=== PATIENT | male | born 1960 | race Two or more races ===

== ENCOUNTER 2017-02-18 12:36 | Inpatient (IN) | payer BC ==
[~2017-02-18] VITALS: Ht 188 cm; Wt 79.0 kg
[~2017-02-18 12:36] MED LIST: PERCOCET 5/31 TABLET PO
[2017-02-18 12:40] VITALS: BP 110/63
[2017-02-18 13:41] LABS: POINT-OF-CARE METER ID UU13113720
[2017-02-18] MEDS ORDERED: DECADRON4 MG PO (14:35)
[2017-02-18] MEDS ORDERED: FAMOTIDINE20 MG PO (14:36)
[2017-02-18] MEDS ORDERED: HYDROCODON-ACE1 EAC7 PO (14:38)
[2017-02-18 14:39] VITALS: BP 111/57
[2017-02-18] MEDS ORDERED: NOVOLOG 10100 UNITS/ SC (14:42)
[2017-02-18] MEDS ORDERED: LANTUS 10100 UNITS/ SC (14:48)
[2017-02-18] MEDS ORDERED: NYSTATIN100000 UN1 PO (14:52)
[2017-02-18] MEDS ORDERED: LEVITRA20 MG PO (14:59)
[2017-02-18] MEDS ORDERED: KEPPRA750 MG PO (15:02)
[2017-02-18] MEDS ORDERED: ACIDOPHILUS100 M1 PO (15:04)
[2017-02-18 16:42] LABS: POINT-OF-CARE METER ID UU13113720
[2017-02-18 21:16] LABS: POINT-OF-CARE METER ID UU14174215
[2017-02-18 23:58] VITALS: BP 106/56
[2017-02-19 05:49] LABS: HEMATOCRIT 30.4 % (38.0-50.0); MCH 23.3 PG (29.0-34.0); MCHC 32.9 G/DL (30.0-36.0); MCV 70.7 FL (86-99); MEAN PLAT.VOLUME 11.1 uM^3 (9.0-12.4); NRBC (%) 0.2 /100 WBC (0-0); PLATELET COUNT 102 K/uL (156-360); RBC DIS.WIDTH-CV 14.8 % (11.8-14.6); RBC DIS.WIDTH-SD 35.3 % (39-53); WHITE BLOOD COUNT 13.5 K/uL (4.1-10.2)
[2017-02-19 05:51] VITALS: BP 106/58
[2017-02-19 07:42] LABS: POINT-OF-CARE METER ID UU13113720
[2017-02-19 09:46] LABS: CHLORIDE 102 mEq/L (99-109); POTASSIUM 4.6 mEq/L (3.7-5.4)
[2017-02-19 09:47] LABS: SODIUM 133 mEq/L (136-147)
[2017-02-19 09:49] LABS: GLUCOSE 177 mg/dL (70-99)
[2017-02-19 09:50] LABS: ANION GAP 10 MEQ/L (2-14)
[2017-02-19 09:51] LABS: TOTAL BILIRUBIN 0.7 mg/dL (0.0-1.0)
[2017-02-19 09:52] LABS: ALKALINE PHOSPHATASE 47 IU/L (3-129); GFR ESTIMATE (CALCULATED) > 59 mL/min/
[2017-02-19 09:54] LABS: UREA NITROGEN (BUN) 26 mg/dL (9-23)
[2017-02-19 11:58] LABS: POINT-OF-CARE METER ID UU13113720
[2017-02-19 15:15] VITALS: BP 118/57
[2017-02-19 16:50] LABS: POINT-OF-CARE METER ID UU14174215
[2017-02-19 21:23] LABS: POINT-OF-CARE METER ID UU14174215
[2017-02-20 05:14] VITALS: BP 106/59
[2017-02-20 06:59] VITALS: BP 106/59
[2017-02-20 07:44] LABS: POINT-OF-CARE METER ID UU13113720
[2017-02-20 11:58] LABS: POINT-OF-CARE METER ID UU13113720
[2017-02-20 15:28] VITALS: BP 123/67
[2017-02-20 16:32] LABS: POINT-OF-CARE METER ID UU13113720
[2017-02-20 21:00] LABS: POINT-OF-CARE METER ID UU14174215
[2017-02-21 05:18] VITALS: BP 108/56
[2017-02-21 07:31] LABS: POINT-OF-CARE METER ID UU14174215; POINT-OF-CARE USER ID ENVGAF
[2017-02-21 11:40] LABS: POINT-OF-CARE METER ID UU13113720; POINT-OF-CARE USER ID ENVGAF
[2017-02-21 16:02] VITALS: BP 117/58
[2017-02-21 16:15] LABS: POINT-OF-CARE METER ID UU13113720
[2017-02-21 21:07] LABS: POINT-OF-CARE METER ID UU13113720
[2017-02-22 05:29] VITALS: BP 113/62
[2017-02-22 06:14] LABS: ALKALINE PHOSPHATASE 53 IU/L (3-129); ANION GAP 4 MEQ/L (2-14); CHLORIDE 102 MEQ/L (99-109); GFR ESTIMATE (CALCULATED) > 59 mL/min/; GLUCOSE 183 mg/dL (70-99); POTASSIUM 4.2 MEQ/L (3.7-5.4); SAMPLE HEMOLYSIS CHECK 0; SAMPLE ICTERIC CHECK 0; SAMPLE LIPEMIA CHECK 0; SODIUM 135 MEQ/L (136-147); TOTAL BILIRUBIN 0.7 MG/DL (0.0-1.0); UREA NITROGEN (BUN) 19 mg/dL (9-23)
[2017-02-22 06:22] LABS: HEMATOCRIT 30.8 % (38.0-50.0); MCH 23.1 PG (29.0-34.0); MCHC 32.1 G/DL (30.0-36.0); MCV 71.8 FL (86-99); MEAN PLAT.VOLUME 11.6 uM^3 (9.0-12.4); PLATELET COUNT 101 K/uL (156-360); RBC DIS.WIDTH-CV 15.4 % (11.8-14.6); RBC DIS.WIDTH-SD 37.1 % (39-53); RED BLOOD COUNT 4.29 M/uL (4.00-5.50)
[2017-02-22 06:27] LABS: WHITE BLOOD COUNT 18.3 K/uL (4.1-10.2)
[2017-02-22 07:09] LABS: POINT-OF-CARE METER ID UU14174215
[2017-02-22 11:47] LABS: POINT-OF-CARE METER ID UU14174215
[2017-02-22 14:21] VITALS: BP 154/74
[2017-02-22 14:29] VITALS: BP 136/70
[2017-02-22 14:35] LABS: POINT-OF-CARE METER ID UU14174215
[2017-02-22 14:55] VITALS: BP 131/72
[2017-02-22 15:10] LABS: ALKALINE PHOSPHATASE 61 IU/L (3-129); ANION GAP 16 MEQ/L (2-14); CHLORIDE 98 MEQ/L (99-109); GFR ESTIMATE (CALCULATED) > 59 mL/min/; GLUCOSE 244 mg/dL (70-99); POTASSIUM 4.5 MEQ/L (3.7-5.4); SAMPLE HEMOLYSIS CHECK 0; SAMPLE ICTERIC CHECK 0; SAMPLE LIPEMIA CHECK 0; SODIUM 134 MEQ/L (136-147); TOTAL BILIRUBIN 0.8 MG/DL (0.0-1.0); UREA NITROGEN (BUN) 18 mg/dL (9-23)
[2017-02-22 15:30] VITALS: BP 140/77
[2017-02-22 16:03] LABS: ADD MIUA? YES; BILIRUBIN NEGATIVE; BLOOD SMALL; COLOR YELLOW ((YELLOW)); GLUCOSE (STRIP) >=500; KETONES NEGATIVE; LEUKOCYTES NEGATIVE; NITRITE NEGATIVE; PROTEIN (STRIP) NEGATIVE; SPECIFIC GRAVITY 1.024 (1.000-1.030); UROBILINOGEN 0.2 MG/DL (0.2-1.0)
[2017-02-22 16:08] LABS: EOSINOPHIL (%) 0.2 % (0-5); EOSINOPHIL COUNT 0.1 K/uL (0-0.3); HEMATOCRIT 36.6 % (38.0-50.0); IMMATURE GRANULOCYTE (%) 4.3 % (0.0-0.7); IMMATURE GRANULOCYTE COUNT 1.1 K/uL; LYMPHOCYTE COUNT 2.9 K/uL (1.0-2.8); MCH 23.6 PG (29.0-34.0); MCHC 31.7 G/DL (30.0-36.0); MCV 74.4 FL (86-99); MONOCYTE (%) 6.4 % (3-12); MONOCYTE COUNT 1.7 K/uL (0-0.8); NEUTROPHIL (%) 78.1 % (45-76); PLATELET COUNT 129 K/uL (156-360); RBC DIS.WIDTH-CV 15.9 % (11.8-14.6); RBC DIS.WIDTH-SD 39.8 % (39-53); RED BLOOD COUNT 4.92 M/uL (4.00-5.50)
[2017-02-22 16:18] LABS: WHITE BLOOD COUNT 26.8 K/uL (4.1-10.2)
[2017-02-22 16:19] LABS: BACTERIA RARE /HPF; BUDDING YEAST 2+; EPITHELIAL CELLS NONE SEEN /HPF; MUCUS TRACE /LPF; RED BLOOD CELLS 0-5 /HPF (0-5); UCUL ADDED? NO; WHITE BLOOD CELLS 0-5 /HPF (0-5)
[2017-02-22 17:08] VITALS: BP 134/64
[2017-02-22 17:08] LABS: BASE EXCESS 1.6 mEq/L (-3 to +3); BICARBONATE 25.8 mEq/L (22-26); CARBOXY HGB 2.2 % (0-5); METHEMOGLOBIN 1.9 % (0-1.5); PCO2 38 mm Hg (35-45); PO2 72 mm Hg (80-100); SITE RR; pH 7.44 (7.35-7.45)
[2017-02-22 17:09] LABS: COMMENTS - BLOOD GASES A+C+; FI02 21 %; TOTAL RESP RATE 18 resp/min
== END 2017-02-22 17:20 | DRG 949 ==
LOC: 3WEST 12:36 → 5SOUTH 02-22 17:01 → 3WEST 02-22 17:01
PROVIDERS: Hospitalist; Physical Medicine & Rehabilitation Pain Medicine
PROC: F07M0ZZ Range of Motion and Joint Mobility Treatment of Musculoskeletal System - Whole Body (ICD-10-PCS; principal; 2017-02-18)
DX: Z48.3 Aftercare following surgery for neoplasm (principal); R53.1 Weakness; J18.9 Pneumonia, unspecified organism; D62 Acute posthemorrhagic anemia; E87.1 Hypo-osmolality and hyponatremia; B37.0 Candidal stomatitis; G81.91 Hemiplegia, unspecified affecting right dominant side; D32.0 Benign neoplasm of cerebral meninges; I10 Essential (primary) hypertension; R40.4 Transient alteration of awareness; E11.649 Type 2 diabetes mellitus with hypoglycemia without coma; N40.0 Benign prostatic hyperplasia without lower urinary tract symptoms; G40.909 Epilepsy, unspecified, not intractable, without status epilepticus; G89.18 Other acute postprocedural pain; M21.372 Foot drop, left foot; R33.9 Retention of urine, unspecified; E83.51 Hypocalcemia; R41.841 Cognitive communication deficit; R26.2 Difficulty in walking, not elsewhere classified; M43.6 Torticollis; Z79.4 Long term (current) use of insulin; R32 Unspecified urinary incontinence
CPT/HCPCS: 36600; 70450; 71020; 80053; 81003; 82803; 82948; 83605; 85025; 85027; 87040; 92523 GN; 93005; 97110 GO; 97530 GP; 97532 GN; J1815; J1953; J2060; J7030; J7050; J8540

== ENCOUNTER 2017-02-22 17:21 | Inpatient (IN) | payer BC ==
[~2017-02-22] VITALS: Ht 188 cm; Wt 79.0 kg
[~2017-02-22 17:21] MED LIST changes: +ACIDOPHILUS100 M1 PO; +DECADRON4 MG PO; +FAMOTIDINE20 MG PO; +HYDROCODON-ACE1 EAC7 PO; +KEPPRA750 MG PO; +LANTUS 10100 UNITS/ SC; +LEVITRA20 MG PO; +NOVOLOG 10100 UNITS/ SC; +NYSTATIN100000 UN1 PO
[2017-02-22 17:49] VITALS: BP 134/64
[2017-02-22 19:47] VITALS: BP 142/66
[2017-02-22 21:33] LABS: POINT-OF-CARE METER ID UU14174225
[2017-02-22 23:57] LABS: POINT-OF-CARE METER ID UU14174225
[2017-02-22 23:58] VITALS: BP 123/60
[2017-02-23 03:20] VITALS: BP 112/59
[2017-02-23 06:54] LABS: EOSINOPHIL (%) 0 % (0-5); HEMATOCRIT 31.8 % (38.0-50.0); IMMATURE GRANULOCYTE (%) 2.3 % (0.0-0.7); IMMATURE GRANULOCYTE COUNT 0.4 K/uL; INSTRUMENT ABS NEUTROPHIL CT 15.5 K/uL; LYMPHOCYTE COUNT 0.6 K/uL (1.0-2.8); MCH 23.1 PG (29.0-34.0); MCHC 31.8 G/DL (30.0-36.0); MCV 72.6 FL (86-99); MEAN PLAT.VOLUME 11.6 uM^3 (9.0-12.4); MONOCYTE (%) 5.9 % (3-12); NEUTROPHIL (%) 88.5 % (45-76); NEUTROPHIL COUNT 15.5 K/uL (1.8-6.4); PLATELET COUNT 104 K/uL (156-360); RBC DIS.WIDTH-CV 15.9 % (11.8-14.6); RBC DIS.WIDTH-SD 39.6 % (39-53); RED BLOOD COUNT 4.38 M/uL (4.00-5.50); WHITE BLOOD COUNT 17.5 K/uL (4.1-10.2)
[2017-02-23 07:05] LABS: ANION GAP 6 MEQ/L (2-14); CHLORIDE 104 MEQ/L (99-109); GFR ESTIMATE (CALCULATED) > 59 mL/min/; GLUCOSE 206 mg/dL (70-99); POTASSIUM 4.4 MEQ/L (3.7-5.4); SAMPLE HEMOLYSIS CHECK 0; SAMPLE ICTERIC CHECK 0; SAMPLE LIPEMIA CHECK 0; SODIUM 137 MEQ/L (136-147); UREA NITROGEN (BUN) 19 mg/dL (9-23)
[2017-02-23 08:18] VITALS: BP 123/58
[2017-02-23 11:02] VITALS: BP 117/60
[2017-02-23 15:59] VITALS: BP 119/60
[2017-02-23 20:20] VITALS: BP 119/67
[2017-02-23 23:59] VITALS: BP 127/81
[2017-02-24 04:00] VITALS: BP 107/59
[2017-02-24 08:33] VITALS: BP 108/55
[2017-02-24 12:09] VITALS: BP 116/64
[2017-02-24 16:25] VITALS: BP 118/66
[2017-02-24 17:49] LABS: POINT-OF-CARE METER ID UU14174225
[2017-02-24 20:00] VITALS: BP 99/58
[2017-02-25] VITALS: BP 108/56
[2017-02-25 06:12] LABS: POINT-OF-CARE METER ID UU14174225
[2017-02-25 08:11] VITALS: BP 103/59
[2017-02-25 11:51] VITALS: BP 105/57
[2017-02-25] MEDS ORDERED: DILANTIN100 MG PO (12:51)
[2017-02-25] MEDS ORDERED: LEVETIRACETAM500 MG PO (12:51)
[2017-02-25] MEDS ORDERED: PERCOCET 5/31 TABLET PO (12:53)
== END 2017-02-25 14:55 | DRG 101 ==
LOC: 3WEST 17:21 → 5SOUTH 17:42
PROVIDERS: Hospitalist; Internal Medicine
DX: G40.89 Other seizures (principal); R41.82 Altered mental status, unspecified; D32.0 Benign neoplasm of cerebral meninges; Z98.890 Other specified postprocedural states; I10 Essential (primary) hypertension; E11.9 Type 2 diabetes mellitus without complications; I69.352 Hemiplegia and hemiparesis following cerebral infarction affecting left dominant side; N40.0 Benign prostatic hyperplasia without lower urinary tract symptoms; R26.2 Difficulty in walking, not elsewhere classified; Z79.4 Long term (current) use of insulin
CPT/HCPCS: 80048; 82948; 83605; 85025; 85027; 92610 GN; 95819; C9113; J1100; J1165; J1815; J1885; J1953; J2060; J7030; J7050

== ENCOUNTER 2017-02-25 12:11 | Inpatient (IN) | payer BC ==
[~2017-02-25] VITALS: Ht 188 cm; Wt 92.2 kg
[2017-02-25] MEDS ORDERED: LEVETIRACETAM500 MG PO (12:51)
[2017-02-25] MEDS ORDERED: DILANTIN100 MG PO (12:51)
[2017-02-25] MEDS ORDERED: PERCOCET 5/31 TABLET PO (12:53)
[2017-02-25 15:25] VITALS: BP 111/59
[2017-02-25 16:20] LABS: POINT-OF-CARE METER ID UU13113720
[2017-02-25 21:35] LABS: POINT-OF-CARE METER ID UU13113720
[2017-02-25 23:27] VITALS: BP 98/55
[2017-02-26 06:21] VITALS: BP 101/58
[2017-02-26 06:22] LABS: ALKALINE PHOSPHATASE 53 IU/L (3-129); ANION GAP 6 MEQ/L (2-14); CHLORIDE 107 MEQ/L (99-109); GFR ESTIMATE (CALCULATED) > 59 mL/min/; GLUCOSE 216 mg/dL (70-99); POTASSIUM 4.1 MEQ/L (3.7-5.4); SAMPLE HEMOLYSIS CHECK 0; SAMPLE ICTERIC CHECK 0; SAMPLE LIPEMIA CHECK 0; SODIUM 138 MEQ/L (136-147); UREA NITROGEN (BUN) 23 mg/dL (9-23)
[2017-02-26 06:24] LABS: TOTAL BILIRUBIN 0.4 MG/DL (0.0-1.0)
[2017-02-26 06:29] LABS: HEMATOCRIT 30.5 % (38.0-50.0); MCH 23.2 PG (29.0-34.0); MCHC 32.1 G/DL (30.0-36.0); MCV 72.1 FL (86-99); MEAN PLAT.VOLUME 11.1 uM^3 (9.0-12.4); PLATELET COUNT 94 K/uL (156-360); RBC DIS.WIDTH-CV 15.9 % (11.8-14.6); RBC DIS.WIDTH-SD 40.2 % (39-53); RED BLOOD COUNT 4.23 M/uL (4.00-5.50)
[2017-02-26 06:31] LABS: WHITE BLOOD COUNT 11.7 K/uL (4.1-10.2)
[2017-02-26 06:38] LABS: POINT-OF-CARE METER ID UU14174215; POINT-OF-CARE USER ID ENVGAF
[2017-02-26 11:35] LABS: POINT-OF-CARE METER ID UU14174215
[2017-02-26 15:13] VITALS: BP 108/56
[2017-02-26 16:13] LABS: POINT-OF-CARE METER ID UU13113720
[2017-02-26 21:31] LABS: POINT-OF-CARE METER ID UU14174215
[2017-02-27 05:21] VITALS: BP 103/59
[2017-02-27 08:08] LABS: POINT-OF-CARE METER ID UU14174215; POINT-OF-CARE USER ID AHSSSJB31
[2017-02-27 11:38] LABS: POINT-OF-CARE METER ID UU13113720
[2017-02-27 15:05] VITALS: BP 114/57
[2017-02-27 16:28] LABS: POINT-OF-CARE METER ID UU13113720
[2017-02-27 20:54] LABS: POINT-OF-CARE METER ID UU14174215; POINT-OF-CARE USER ID 610211320
[2017-02-28 05:10] VITALS: BP 113/57
[2017-02-28 07:24] LABS: POINT-OF-CARE METER ID UU14174215; POINT-OF-CARE USER ID AHSSSJB31
[2017-02-28 12:16] LABS: POINT-OF-CARE METER ID UU13113720; POINT-OF-CARE USER ID AHSSSJB31
[2017-02-28 15:50] VITALS: BP 109/50
[2017-02-28 16:45] LABS: POINT-OF-CARE METER ID UU13113720
[2017-02-28 21:15] LABS: POINT-OF-CARE METER ID UU13113720
[2017-03-01 05:53] VITALS: BP 114/55
[2017-03-01 06:56] LABS: POINT-OF-CARE METER ID UU14174215; POINT-OF-CARE USER ID ENVGAF
[2017-03-01 11:05] LABS: POINT-OF-CARE METER ID UU13113720
[2017-03-01 15:11] VITALS: BP 112/57
[2017-03-01 16:37] LABS: POINT-OF-CARE METER ID UU13113720
[2017-03-01 21:12] LABS: POINT-OF-CARE METER ID UU13113720
[2017-03-02 06:51] VITALS: BP 109/57
[2017-03-02 07:11] LABS: POINT-OF-CARE METER ID UU13113720
[2017-03-02 11:14] LABS: ADD MIUA? YES; BILIRUBIN NEGATIVE; BLOOD MODERATE; COLOR YELLOW ((YELLOW)); GLUCOSE (STRIP) >=500; KETONES NEGATIVE; LEUKOCYTES LARGE; NITRITE POSITIVE; PROTEIN (STRIP) 30; SPECIFIC GRAVITY 1.025 (1.000-1.030); UROBILINOGEN 0.2 MG/DL (0.2-1.0)
[2017-03-02 11:24] LABS: POINT-OF-CARE METER ID UU13113720
[2017-03-02 11:31] LABS: BACTERIA 3+ /HPF; BUDDING YEAST 4+; EPITHELIAL CELLS NONE SEEN /HPF; MUCUS TRACE /LPF; RED BLOOD CELLS 30-40 /HPF (0-5); WHITE BLOOD CELLS TNTC /HPF (0-5); WHITE BLOOD CELLS CLUMP MANY /HPF (0-5)
[2017-03-02 15:05] VITALS: BP 106/54
[2017-03-02 16:26] LABS: POINT-OF-CARE METER ID UU13113720
[2017-03-02 21:14] LABS: POINT-OF-CARE METER ID UU13113720; POINT-OF-CARE USER ID 610211320
[2017-03-03 05:43] VITALS: BP 111/55
[2017-03-03 07:28] LABS: POINT-OF-CARE METER ID UU13113720
[2017-03-03 11:31] LABS: POINT-OF-CARE METER ID UU14174215; POINT-OF-CARE USER ID ENVGAF
[2017-03-03 15:02] VITALS: BP 101/58
[2017-03-03 16:50] LABS: POINT-OF-CARE METER ID UU13113720
[2017-03-03 21:34] LABS: POINT-OF-CARE METER ID UU13113720
[2017-03-04 05:21] LABS: CHLORIDE 107 mEq/L (99-109); POTASSIUM 4.2 mEq/L (3.7-5.4); SODIUM 140 mEq/L (136-147)
[2017-03-04 05:23] LABS: GLUCOSE 120 mg/dL (70-99)
[2017-03-04 05:24] LABS: ANION GAP 6 MEQ/L (2-14)
[2017-03-04 05:25] LABS: TOTAL BILIRUBIN 0.3 mg/dL (0.0-1.0)
[2017-03-04 05:27] LABS: ALKALINE PHOSPHATASE 102 IU/L (3-129); GFR ESTIMATE (CALCULATED) > 59 mL/min/
[2017-03-04 05:28] LABS: UREA NITROGEN (BUN) 12 mg/dL (9-23)
[2017-03-04 05:42] VITALS: BP 101/55
[2017-03-04 06:28] LABS: HEMATOCRIT 31.6 % (38.0-50.0); MCH 23.1 PG (29.0-34.0); MCHC 31.3 G/DL (30.0-36.0); MCV 73.8 FL (86-99); MEAN PLAT.VOLUME 12.9 uM^3 (9.0-12.4); PLATELET COUNT 80 K/uL (156-360); RBC DIS.WIDTH-CV 16.2 % (11.8-14.6); RBC DIS.WIDTH-SD 42.5 % (39-53); RED BLOOD COUNT 4.28 M/uL (4.00-5.50)
[2017-03-04 06:32] LABS: WHITE BLOOD COUNT 6.6 K/uL (4.1-10.2)
[2017-03-04 08:17] LABS: POINT-OF-CARE METER ID UU13113720; POINT-OF-CARE USER ID AHSSSJB31
[2017-03-04 12:21] LABS: POINT-OF-CARE METER ID UU14174215; POINT-OF-CARE USER ID AHSSSJB31
[2017-03-04 15:56] VITALS: BP 110/69
[2017-03-04 16:34] LABS: POINT-OF-CARE METER ID UU13113720; POINT-OF-CARE USER ID AHSSSJB31
[2017-03-04 21:32] LABS: POINT-OF-CARE METER ID UU14174215
[2017-03-05 05:30] VITALS: BP 112/59
[2017-03-05 07:34] LABS: POINT-OF-CARE METER ID UU14174215
[2017-03-05 11:44] LABS: POINT-OF-CARE METER ID UU13113720
[2017-03-05 15:03] VITALS: BP 113/57
[2017-03-05 16:45] LABS: POINT-OF-CARE METER ID UU14174215
[2017-03-05 21:00] LABS: POINT-OF-CARE METER ID UU13113720
[2017-03-06 05:15] VITALS: BP 99/56
[2017-03-06 05:54] LABS: ALKALINE PHOSPHATASE 127 IU/L (3-129); DIRECT BILIRUBIN 0.1 mg/dL (0.0-0.3); TOTAL BILIRUBIN 0.3 MG/DL (0.0-1.0)
[2017-03-06 06:36] LABS: EOSINOPHIL (%) 2.9 % (0-5); EOSINOPHIL COUNT 0.2 K/uL (0-0.3); HEMATOCRIT 31.6 % (38.0-50.0); IMMATURE GRANULOCYTE (%) 0.6 % (0.0-0.7); INSTRUMENT ABS NEUTROPHIL CT 4.2 K/uL; LYMPHOCYTE COUNT 1.6 K/uL (1.0-2.8); MCH 23.8 PG (29.0-34.0); MCHC 32.3 G/DL (30.0-36.0); MCV 73.7 FL (86-99); MONOCYTE (%) 7.4 % (3-12); MONOCYTE COUNT 0.5 K/uL (0-0.8); NEUTROPHIL (%) 64.5 % (45-76); NEUTROPHIL COUNT 4.2 K/uL (1.8-6.4); PLATELET COUNT 96 K/uL (156-360); RBC DIS.WIDTH-CV 16.2 % (11.8-14.6); RBC DIS.WIDTH-SD 42.3 % (39-53); RED BLOOD COUNT 4.29 M/uL (4.00-5.50); WHITE BLOOD COUNT 6.5 K/uL (4.1-10.2)
[2017-03-06 07:48] LABS: POINT-OF-CARE METER ID UU14174215
[2017-03-06 09:29] LABS: FERRITIN 134 NG/ML (22-322)
[2017-03-06 10:18] LABS: HPCA INDEX 0.18
[2017-03-06 11:39] LABS: POINT-OF-CARE METER ID UU14174215
[2017-03-06 15:48] VITALS: BP 113/65
[2017-03-06 16:52] LABS: POINT-OF-CARE METER ID UU14174215
[2017-03-06 21:24] LABS: POINT-OF-CARE METER ID UU13113720
[2017-03-07 06:17] VITALS: BP 126/69
[2017-03-07 06:47] LABS: POINT-OF-CARE METER ID UU13113720; POINT-OF-CARE USER ID ENVGAF
[2017-03-07 08:46] LABS: ALKALINE PHOSPHATASE 127 IU/L (3-129); DIRECT BILIRUBIN 0.2 mg/dL (0.0-0.3)
[2017-03-07 08:49] LABS: TOTAL BILIRUBIN 0.4 MG/DL (0.0-1.0)
[2017-03-07 13:09] LABS: GLUCOSE 113 mg/dL (70-99)
[2017-03-07 14:37] LABS: POINT-OF-CARE METER ID UU13113720
[2017-03-07 15:03] VITALS: BP 121/60
[2017-03-07 16:13] LABS: POINT-OF-CARE METER ID UU14174215
[2017-03-07 16:50] LABS: ANTI-SMOOTH MUSCLE (Actin)+ <20 U (<20)
[2017-03-07 21:08] LABS: POINT-OF-CARE METER ID UU14174215
[2017-03-08 05:03] VITALS: BP 114/59
[2017-03-08 06:43] LABS: ALKALINE PHOSPHATASE 116 IU/L (3-129); DIRECT BILIRUBIN 0.1 mg/dL (0.0-0.3)
[2017-03-08 06:47] LABS: POINT-OF-CARE METER ID UU13113720; POINT-OF-CARE USER ID ENVGAF
[2017-03-08 06:49] LABS: TOTAL BILIRUBIN 0.3 MG/DL (0.0-1.0)
[2017-03-08 11:07] LABS: POINT-OF-CARE METER ID UU13113720
[2017-03-08 15:29] VITALS: BP 108/61
[2017-03-08 16:16] LABS: POINT-OF-CARE METER ID UU14174215
[2017-03-08 18:01] LABS: MITOCHONDRIAL (M2) ANTIBODIES+ <=20.0 U (<=20.0)
[2017-03-08 21:06] LABS: POINT-OF-CARE METER ID UU13113720
[2017-03-09 04:24] VITALS: BP 112/56
[2017-03-09 07:20] LABS: EOSINOPHIL (%) 4.9 % (0-5); EOSINOPHIL COUNT 0.2 K/uL (0-0.3); HEMATOCRIT 32.3 % (38.0-50.0); IMMATURE GRANULOCYTE (%) 0.4 % (0.0-0.7); INSTRUMENT ABS NEUTROPHIL CT 2.8 K/uL; LYMPHOCYTE COUNT 1.4 K/uL (1.0-2.8); MCH 23.5 PG (29.0-34.0); MCHC 31.6 G/DL (30.0-36.0); MCV 74.4 FL (86-99); MEAN PLAT.VOLUME 10.4 uM^3 (9.0-12.4); MONOCYTE (%) 8.9 % (3-12); MONOCYTE COUNT 0.4 K/uL (0-0.8); NEUTROPHIL (%) 56.6 % (45-76); NEUTROPHIL COUNT 2.8 K/uL (1.8-6.4); PLATELET COUNT 116 K/uL (156-360); RBC DIS.WIDTH-CV 15.7 % (11.8-14.6); RBC DIS.WIDTH-SD 41.9 % (39-53); RED BLOOD COUNT 4.34 M/uL (4.00-5.50); WHITE BLOOD COUNT 4.9 K/uL (4.1-10.2)
[2017-03-09 07:26] LABS: POINT-OF-CARE METER ID UU13113720
[2017-03-09 07:27] LABS: INTER. NORMALIZED RATIO 1.1; PROTHROMBIN TIME 10.9 (9.2-11.2)
[2017-03-09 07:36] LABS: ALKALINE PHOSPHATASE 126 IU/L (3-129); DIRECT BILIRUBIN 0.1 mg/dL (0.0-0.3)
[2017-03-09 07:45] LABS: TOTAL BILIRUBIN 0.4 MG/DL (0.0-1.0)
[2017-03-09 08:03] VITALS: BP 103/52
[2017-03-09 11:32] LABS: POINT-OF-CARE METER ID UU13113720
[2017-03-09 15:45] VITALS: BP 115/56
[2017-03-09 16:27] LABS: POINT-OF-CARE METER ID UU13113720
[2017-03-09 21:40] LABS: POINT-OF-CARE METER ID UU13113720; POINT-OF-CARE USER ID 610211320
[2017-03-10 04:27] LABS: TOTAL BILIRUBIN 0.3 mg/dL (0.0-1.0)
[2017-03-10 04:30] LABS: ALKALINE PHOSPHATASE 128 IU/L (3-129)
[2017-03-10 04:31] LABS: DIRECT BILIRUBIN 0.2 mg/dL (0.0-0.3)
[2017-03-10 05:36] VITALS: BP 110/53
[2017-03-10 07:07] LABS: POINT-OF-CARE METER ID UU14174215
[2017-03-10 07:30] VITALS: BP 111/55
[2017-03-10 07:45] LABS: POINT-OF-CARE METER ID UU14174215
[2017-03-10 08:14] LABS: POINT-OF-CARE METER ID UU14174215
[2017-03-10 11:06] LABS: POINT-OF-CARE METER ID UU13113720
[2017-03-10 16:04] VITALS: BP 117/60
[2017-03-10 16:25] LABS: POINT-OF-CARE METER ID UU14174215
[2017-03-10 21:10] LABS: POINT-OF-CARE METER ID UU13113720
[2017-03-11 04:55] VITALS: BP 96/55
[2017-03-11 07:03] LABS: POINT-OF-CARE METER ID UU14174215; POINT-OF-CARE USER ID ENVGAF
[2017-03-11 11:16] LABS: POINT-OF-CARE METER ID UU14174215
[2017-03-11 15:16] VITALS: BP 111/66
[2017-03-11 16:46] LABS: POINT-OF-CARE METER ID UU13113720
[2017-03-11 21:14] LABS: POINT-OF-CARE METER ID UU13113720
[2017-03-12 05:33] VITALS: BP 120/66
[2017-03-12 06:56] LABS: POINT-OF-CARE METER ID UU14174215; POINT-OF-CARE USER ID ENVGAF
[2017-03-12 11:23] LABS: POINT-OF-CARE METER ID UU14174215; POINT-OF-CARE USER ID ENVGAF
[2017-03-12 14:58] VITALS: BP 114/61
[2017-03-12 16:26] LABS: POINT-OF-CARE METER ID UU14174215
[2017-03-12 21:27] LABS: POINT-OF-CARE METER ID UU13113720
[2017-03-13 05:07] VITALS: BP 112/62
[2017-03-13 05:17] LABS: ALKALINE PHOSPHATASE 108 IU/L (3-129)
[2017-03-13 05:20] LABS: DIRECT BILIRUBIN 0.2 mg/dL (0.0-0.3)
[2017-03-13 05:21] LABS: TOTAL BILIRUBIN 0.6 mg/dL (0.0-1.0)
[2017-03-13 07:23] LABS: POINT-OF-CARE METER ID UU13113720
[2017-03-13 11:58] LABS: POINT-OF-CARE METER ID UU13113720
[2017-03-13 15:39] VITALS: BP 105/58
[2017-03-13 16:40] LABS: POINT-OF-CARE METER ID UU13113720
[2017-03-13 23:51] LABS: POINT-OF-CARE METER ID UU14174215
[2017-03-14 05:24] VITALS: BP 111/59
[2017-03-14 06:11] LABS: DIRECT BILIRUBIN 0.2 mg/dL (0.0-0.3); TOTAL BILIRUBIN 0.4 MG/DL (0.0-1.0)
[2017-03-14 06:34] LABS: ALKALINE PHOSPHATASE 100 IU/L (3-129)
[2017-03-14 08:13] LABS: POINT-OF-CARE METER ID UU13113720; POINT-OF-CARE USER ID AHSSSJB31
[2017-03-14 11:53] LABS: POINT-OF-CARE METER ID UU14174215
[2017-03-14 15:24] VITALS: BP 113/58
[2017-03-14 16:57] LABS: POINT-OF-CARE METER ID UU13113720
[2017-03-14 21:05] LABS: POINT-OF-CARE METER ID UU13113720; POINT-OF-CARE USER ID 610211320
[2017-03-14 22:42] LABS: ADD MIUA? YES; BILIRUBIN NEGATIVE; BLOOD NEGATIVE; COLOR YELLOW ((YELLOW)); GLUCOSE (STRIP) >=500; KETONES NEGATIVE; LEUKOCYTES MODERATE; NITRITE NEGATIVE; PROTEIN (STRIP) NEGATIVE; SPECIFIC GRAVITY 1.033 (1.000-1.030); UROBILINOGEN 0.2 MG/DL (0.2-1.0)
[2017-03-14 23:13] LABS: EPITHELIAL CELLS 1+ /HPF; WHITE BLOOD CELLS TNTC /HPF (0-5)
[2017-03-14 23:14] LABS: BACTERIA 2+ /HPF; MUCUS 1+ /LPF
[2017-03-15 05:27] VITALS: BP 119/63
[2017-03-15 07:33] LABS: POINT-OF-CARE METER ID UU13113720; POINT-OF-CARE USER ID AHSSSJB31
[2017-03-15 11:48] LABS: POINT-OF-CARE METER ID UU14174215
[2017-03-15 15:45] VITALS: BP 127/62
[2017-03-15 16:40] LABS: POINT-OF-CARE METER ID UU14174215; POINT-OF-CARE USER ID AHSSSJB31
[2017-03-15 21:25] LABS: POINT-OF-CARE METER ID UU14174215
[2017-03-16 04:19] VITALS: BP 108/74
[2017-03-16 07:05] LABS: POINT-OF-CARE METER ID UU13113720
[2017-03-16 09:28] LABS: ALKALINE PHOSPHATASE 110 IU/L (3-129); DIRECT BILIRUBIN 0.1 mg/dL (0.0-0.3)
[2017-03-16 09:29] LABS: TOTAL BILIRUBIN 0.5 MG/DL (0.0-1.0)
[2017-03-16 11:15] LABS: POINT-OF-CARE METER ID UU13113720
[2017-03-16 15:03] VITALS: BP 110/62
[2017-03-16 16:26] LABS: POINT-OF-CARE METER ID UU13113720
[2017-03-16 21:05] LABS: POINT-OF-CARE METER ID UU13113720; POINT-OF-CARE USER ID 610211320
[2017-03-17 05:20] VITALS: BP 116/62
[2017-03-17 05:23] LABS: HEMATOCRIT 32.9 % (38.0-50.0); MCH 23.6 PG (29.0-34.0); MCHC 32.2 G/DL (30.0-36.0); MCV 73.1 FL (86-99); MEAN PLAT.VOLUME 10.9 uM^3 (9.0-12.4); PLATELET COUNT 233 K/uL (156-360); RBC DIS.WIDTH-CV 15.6 % (11.8-14.6); WHITE BLOOD COUNT 6.1 K/uL (4.1-10.2)
[2017-03-17 05:40] LABS: ALKALINE PHOSPHATASE 88 IU/L (3-129); ANION GAP 8 MEQ/L (2-14); CHLORIDE 105 MEQ/L (99-109); GFR ESTIMATE (CALCULATED) > 59 mL/min/; GLUCOSE 90 mg/dL (70-99); POTASSIUM 4.2 MEQ/L (3.7-5.4); SAMPLE HEMOLYSIS CHECK 0; SAMPLE ICTERIC CHECK 0; SAMPLE LIPEMIA CHECK 0; SODIUM 141 MEQ/L (136-147); TOTAL BILIRUBIN 0.4 MG/DL (0.0-1.0); UREA NITROGEN (BUN) 17 mg/dL (9-23)
[2017-03-17 06:32] LABS: POINT-OF-CARE METER ID UU13113720; POINT-OF-CARE USER ID ENVGAF
[2017-03-17 11:55] LABS: POINT-OF-CARE METER ID UU14174215
[2017-03-17 15:11] VITALS: BP 112/59
[2017-03-17 16:21] LABS: POINT-OF-CARE METER ID UU14174215
[2017-03-17 21:25] LABS: POINT-OF-CARE METER ID UU14174215
[2017-03-18 04:24] VITALS: BP 116/63
[2017-03-18 07:57] LABS: POINT-OF-CARE METER ID UU13113720
[2017-03-18] MEDS ORDERED: INVOKAMET 150-1 EACH PO (11:06)
[2017-03-18] MEDS ORDERED: LEVETIRACETAM750 MG PO (11:06)
[2017-03-18] MEDS ORDERED: LIDOCAINE700 MG TD (11:06)
[2017-03-18] MEDS ORDERED: FAMOTIDINE20 MG PO (11:06)
[2017-03-18] MEDS ORDERED: LEVEMIR100 UNIT/2 SC (11:06)
[2017-03-18] MEDS ORDERED: TAMSULOSIN HCL0.4 MG PO (11:06)
[2017-03-18 11:33] LABS: POINT-OF-CARE METER ID UU14174215
== END 2017-03-18 15:15 | DRG 57 ==
LOC: 3WEST 12:11
PROVIDERS: Internal Medicine Gastroenterology; Physical Medicine & Rehabilitation Pain Medicine
PROC: F07M0ZZ Range of Motion and Joint Mobility Treatment of Musculoskeletal System - Whole Body (ICD-10-PCS; principal; 2017-02-25)
DX: G81.94 Hemiplegia, unspecified affecting left nondominant side (principal); R41.89 Other symptoms and signs involving cognitive functions and awareness; Z48.3 Aftercare following surgery for neoplasm; D62 Acute posthemorrhagic anemia; G40.909 Epilepsy, unspecified, not intractable, without status epilepticus; I10 Essential (primary) hypertension; E11.9 Type 2 diabetes mellitus without complications; N40.1 Benign prostatic hyperplasia with lower urinary tract symptoms; R39.15 Urgency of urination; E83.51 Hypocalcemia; D69.6 Thrombocytopenia, unspecified; N39.0 Urinary tract infection, site not specified; B96.20 Unspecified Escherichia coli [E. coli] as the cause of diseases classified elsewhere; R79.89 Other specified abnormal findings of blood chemistry; T42.0X5A Adverse effect of hydantoin derivatives, initial encounter; T36.0X5A Adverse effect of penicillins, initial encounter; M25.572 Pain in left ankle and joints of left foot; M79.672 Pain in left foot; Z79.4 Long term (current) use of insulin; Z86.011 Personal history of benign neoplasm of the brain
CPT/HCPCS: 73610; 73630; 76705; 80053; 80076; 80185; 81003; 82728; 82948; 83516 90; 84999; 85025; 85027; 85610; 86038; 86256 90; 86803; 87077; 87086; 87186; 92523 GN; 97530 GP; 97532 GN; J0278; J1815; J7050; J8540